=== PATIENT | male | born 1955 | race Caucasian/White ===

== ENCOUNTER 2024-02-18 10:02 | Observation (INO) | payer OTHER, MEDICARE ==
[2024-02-18 10:41] VITALS: BMI 26.9
[2024-02-18 11:27] LABS: INR 0.97 (0.83-1.09); PROTHROMBIN TIME (PATIENT) 11.2 SEC (9.7-13.0)
[2024-02-18 11:30] LABS: ACTIVATED PTT 27.1 SECONDS (25.2-36.5)
[2024-02-18 11:35] LABS: BASO % 0.2 % (0-2.0); EOS % 0.3 % (0-4.5); HEMATOCRIT 48.8 % (35.4-49); HEMOGLOBIN 16.5 GM/dL (11.7-16.9); LYMPH % 7.3 % (8-40); MCHC 33.9 g/dl (32.0-35.9); MEAN CELL VOLUME 91.6 fl (80-96); MEAN PLT VOLUME 7.9 fl (7.5-11.1); MONO % 3.9 % (3.8-10.2); NEUT % 88.3 % (42.8-82.8); PLATELET COUNT 250 10^3/uL (134-434); RBC 5.32 M/mm3 (4.00-5.60); WHITE BLOOD COUNT 14.7 K/mm3 (4.0-10.0)
[2024-02-18 11:44] LABS: CALCIUM 9.7 mg/dL (8.5-10.1)
[2024-02-18 11:46] LABS: BLOOD UREA NITROGEN 17.6 mg/dL (7-18)
[2024-02-18 11:48] LABS: CREATININE 1.3 mg/dL (0.55-1.3)
[2024-02-18 11:49] LABS: BILIRUBIN,TOTAL 0.7 mg/dL (0.2-1); TOT PROT 7.6 g/dl (6.4-8.2)
[2024-02-18] MEDS: ACETAMINOPHEN 1000 MG/100 ML BAG IVPB ONE (12:01)
[2024-02-18] MEDS ORDERED: DIPHTH,PERTUSS(ACELL),TET 0.5 ML DISP.SYRIN IM ONE (13:25)
[2024-02-18] MEDS: DIPHTH,PERTUSS(ACELL),TET 0.5 ML DISP.SYRIN IM ONE (14:28)
[2024-02-18] MEDS ORDERED: AMOXICILLIN 500 MG CAPSULE (FP) ONE ×2 (16:18→23:14)
[2024-02-18] MEDS: AMOXICILLIN 500 MG CAPSULE (FP) PO SCH (16:23)
[2024-02-18] MEDS ORDERED: LOSARTAN POTASSIUM 50 MG TABLET ONE (18:54)
[2024-02-18] MEDS: LOSARTAN POTASSIUM 50 MG TABLET PO SCH (18:59)
[2024-02-18] MEDS: DEXTROAMPHETAMINE/AMPHETAMINE 10 MG CAP.ER.24H PO SCH (18:59)
[2024-02-18] MEDS ORDERED: ROSUVASTATIN CA 5 MG TABLET ONE (22:37)
[2024-02-18] MEDS: ROSUVASTATIN CA 5 MG TABLET PO SCH (22:45)
[2024-02-18] MEDS ORDERED: ACETAMINOPHEN 500 MG TABLET (FP) ONE (23:45)
[2024-02-18] MEDS: ACETAMINOPHEN 500 MG TABLET (FP) PO ONE (23:56)
[2024-02-19] MEDS ORDERED: hydrOXYzine PAMOATE 25 MG CAPSULE (FP) PO ONE (01:38)
[2024-02-19] MEDS: hydrOXYzine PAMOATE 25 MG CAPSULE (FP) PO ONE (01:44)
[2024-02-19] MEDS ORDERED: MELATONIN 5 MG TABLETS ONE (05:02)
[2024-02-19] MEDS: MELATONIN 5 MG TABLETS PO ONE (05:10)
[2024-02-19] MEDS ORDERED: AMOXICILLIN 500 MG CAPSULE (FP) ONE (06:11)
[2024-02-19 06:37] LABS: BASO % 0.5 % (0-2.0); EOS % 1.5 % (0-4.5); HEMATOCRIT 43.8 % (35.4-49); LYMPH % 25.2 % (8-40); MCH 31.3 pg (25.7-33.7); MCHC 34.2 g/dl (32.0-35.9); MEAN CELL VOLUME 91.7 fl (80-96); MEAN PLT VOLUME 7.9 fl (7.5-11.1); MONO % 9.2 % (3.8-10.2); NEUT % 63.6 % (42.8-82.8); PLATELET COUNT 236 10^3/uL (134-434); RBC 4.77 M/mm3 (4.00-5.60); RDW 13.4 % (11.9-15.9); WHITE BLOOD COUNT 11.1 K/mm3 (4.0-10.0)
[2024-02-19 06:58] LABS: POTASSIUM 3.9 mmol/L (3.5-5.1)
[2024-02-19 07:00] LABS: BLOOD UREA NITROGEN 13.2 mg/dL (7-18); CALCIUM 9.3 mg/dL (8.5-10.1)
[2024-02-19 07:04] LABS: CREATININE 1.2 mg/dL (0.55-1.3)
[2024-02-19 09:14] VITALS: PULSE 68
[2024-02-19] MEDS: DEXTROAMPHETAMINE/AMPHETAMINE 10 MG CAP.ER.24H PO SCH (11:40)
[2024-02-19 11:45] VITALS: BP 146/80; RESP 18; TEMP 98.5
== END 2024-02-19 11:45 | disposition home or self-care (01) ==
LOC: JER 10:02 → JERBED 14:37
PROVIDERS: ADMIT Internal Medicine; ATTEND Nurse Practitioner
PROC: 0HQ1XZZ Repair Face Skin, External Approach (ICD-10-PCS; principal; 2024-02-18)
PROC: 3E033NZ Introduction of Analgesics, Hypnotics, Sedatives into Peripheral Vein, Percutaneous Approach (ICD-10-PCS; 2024-02-18)
PROC: 3E0234Z Introduction of Serum, Toxoid and Vaccine into Muscle, Percutaneous Approach (ICD-10-PCS; 2024-02-18)
DX: R55 Syncope and collapse (principal); S01.81XA Laceration without foreign body of other part of head, initial encounter; G30.9 Alzheimer's disease, unspecified; R42 Dizziness and giddiness; I10 Essential (primary) hypertension; W22.8XXA Striking against or struck by other objects, initial encounter; Y93.89 Activity, other specified; Y92.003 Bedroom of unspecified non-institutional (private) residence as the place of occurrence of the external cause; Z23 Encounter for immunization
CPT/HCPCS: 12011-25; 36415; 70450-TC; 70486-TC; 72125-TC; 80048; 80053; 84484; 85025; 85610; 85730; 90471; 90715; 93005; 93010; 93306-TC; 96374; 99285-25; G0378; J0131